=== PATIENT | female | born 1960 | race African-American/Black ===

== ENCOUNTER 2016-08-29 07:10 | Emergency (ER) | payer MEDICAID ==
[~2016-08-29] VITALS: Ht 167.6 cm; Wt 59.0 kg
[2016-08-29 08:27] VITALS: BP 98/53
[2016-08-29] MEDS ORDERED: LIDOCAINE 1% HCL (LOCAL ANESTH.) INJ 20ML MDV ONE (09:12)
[2016-08-29] MEDS ORDERED: MORPHINE SULF INJ 2 MG/ML SYRINGE 1ML ONE (10:49)
[2016-08-29] MEDS ORDERED: LIDOCAINE 1% HCL (LOCAL ANESTH.) INJ 20ML MDV IJ ONE (11:00)
[2016-08-29] MEDS ORDERED: MORPHINE SULF INJ 2 MG/ML SYRINGE 1ML IM ONE (11:00)
[2016-08-29] MEDS ORDERED: TETANUS-DIPTH-ACEL PERTUSSIS 0.5ML SYRG IM ONE (11:00)
== END 2016-08-29 11:57 | disposition home or self-care (01) ==
LOC: ER 07:10
DX: S01.511A Laceration without foreign body of lip, initial encounter (principal); M25.511 Pain in right shoulder; W01.0XXA Fall on same level from slipping, tripping and stumbling without subsequent striking against object, initial encounter; Y93.89 Activity, other specified; Y99.8 Other external cause status; Y92.091 Bathroom in other non-institutional residence as the place of occurrence of the external cause
CPT/HCPCS: 12013; 70450; 73030; 90471; 90715; 96372; 99284; J2001; J2270; 12052

== ENCOUNTER 2020-10-21 19:11 | Emergency (ER) | payer BC, MEDICAID ==
[~2020-10-21] VITALS: Ht 167.6 cm; Wt 59.0 kg
[2020-10-21] MEDS ORDERED: SODIUM CHLORIDE 0.9% 1,000 ML IV ONE (19:45)
[2020-10-21 20:04] LABS: Basophils # (auto) 0 10 ^3/uL (0-0.2); Eosinophils # (auto) 0 10 ^3/uL (0-0.8); Eosinophils % (auto) 1.3 % (0.0-7.0); Lymphocytes # (auto) 0.6 10 ^3/uL (0.4-5.4); Mean Corpuscular Hemoglobin 25.6 pg (28.0-32.0); Mean Corpuscular Hgb Conc. 31.8 g/dL (32.0-36.0)
[2020-10-21 20:06] LABS: Basophils % (auto) 0.7 % (0.0-2.0); Hematocrit 31.4 % (36.0-46.0); Lymphocytes % (auto) 16.5 % (10.0-50.0); Mean Corpuscular Volume 80.5 fL (80.0-100.0); Monocytes # (auto) 0.3 10 ^3/uL (0-1.3); Neutrophils # (auto) 2.5 10 ^3/uL (1.6-8.6); Neutrophils % (auto) 71.5 % (37.0-80.0); Nucleated Red Blood Cells % 0.1 %; Red Cell Distribution Width 18.2 % (11.8-14.3); White Blood Cell 3.4 10^3/uL (4.4-10.8)
[2020-10-21 20:24] LABS: Albumin 3.5 g/dL (3.4-5.0); BUN/Creatinine Ratio 21.9; Calcium 8.2 mg/dL (8.5-10.1); Magnesium 1.9 mg/dL (1.6-2.6); Potassium 3.6 mmol/L (3.5-5.1)
[2020-10-21 20:29] LABS: Bilirubin, Total 0.3 mg/dL (0.2-1.0); Total Protein 7.1 g/dL (6.4-8.2)
[2020-10-21 20:45] LABS: Urine Bacteria NONE SEEN /hpf (None Seen); Urine Blood Negative /uL (Negative); Urine Specific Gravity 1.008 (1.001-1.035); Urine WBC 2 /hpf (0 - 5)
[2020-10-21 22:10] VITALS: BP 125/51
== END 2020-10-21 22:32 | disposition home or self-care (01) ==
LOC: ER 19:11
DX: R42 Dizziness and giddiness (principal); N39.0 Urinary tract infection, site not specified; F17.210 Nicotine dependence, cigarettes, uncomplicated; Z90.89 Acquired absence of other organs
CPT/HCPCS: 36415; 70450; 71046; 80053; 81001; 83735; 84484; 85025; 93005